=== PATIENT | male | born 1990 | race Caucasian/White ===

== ENCOUNTER 2018-11-07 17:41 | Emergency (ER) | payer SELFPAY ==
[~2018-11-07] VITALS: Ht 180.3 cm; Wt 150.0 kg
[2018-11-07 19:51] VITALS: BP 135/74
== END 2018-11-07 19:59 | disposition home or self-care (01) ==
LOC: EDBD 17:41 → M ED 17:41
DX: Z04.1 Encounter for examination and observation following transport accident (principal); V73.5XXA Driver of bus injured in collision with car, pick-up truck or van in traffic accident, initial encounter; Y92.410 Unspecified street and highway as the place of occurrence of the external cause; Y93.9 Activity, unspecified; Y99.9 Unspecified external cause status; H53.8 Other visual disturbances